=== PATIENT | male | born 1990 | race Caucasian/White ===

== ENCOUNTER → 2022-08-13 | Outpatient (CLI) | payer OTHER ==
[2022-08-13 15:10] LABS: BASO # 0.1 10*3/uL (0.0-0.1); EOS # 0.2 10*3/uL (0.0-0.4); EOS % 2.1 % (1.0-4.0); HEMATOCRIT 49.1 % (42.0-52.0); LYMPH # 2.1 10*3/uL (1.3-4.4); LYMPH % 20.6 % (27.0-41.0); MEAN CELL VOLUME 82.1 fl (80.0-94.0); MEAN CORPUSCULAR HGB 28.1 pg (27.0-31.0); MEAN CORPUSCULAR HGB CONC 34.2 g/dl (33.0-37.0); MEAN PLATELET VOLUME 11.4 fl (9.6-12.3); MONO # 0.7 10*3/uL (0.1-1.0); MONO % 7.2 % (3.0-9.0); NEUT % 68.8 % (47.0-73.0); PLATELET COUNT AUTOMATED 232 10*3/uL (130-400); RED BLOOD COUNT 5.98 10*6/uL (4.50-5.90); RED CELL DISTRI WIDTH 13.1 % (0-14.5); WHITE BLOOD COUNT 10.2 10*3/uL (4.8-10.8)
[2022-08-13 15:54] LABS: VITAMIN D, 25-HYDROXY 34.6 ng/mL (30-100)
[2022-08-13 19:05] LABS: ALKALINE PHOSPHATASE 83 U/L (46-116); BUN 15 mg/dl (9-23); CHLORIDE 108 mmol/L (98-107); CHOLESTEROL 155 mg/dL (<200); FREE T4 1.25 ng/dl (0.89-1.76); LDL CHOLESTEROL 76 mg/dL (9-159); POTASSIUM 3.9 mmol/L (3.4-5.1); SGPT/ALT 31 U/L (10-49); THYROID STIM HORMONE (HS) 1.262 uIU/ml (0.550-4.780); TRIGLYCERIDES 242 mg/dl (<150)
== END | disposition home or self-care (01) ==
LOC: LAB 14:53
PROVIDERS: ATTEND Internal Medicine
DX: Z13.0 Encounter for screening for diseases of the blood and blood-forming organs and certain disorders involving the immune mechanism (principal); Z13.1 Encounter for screening for diabetes mellitus; Z13.21 Encounter for screening for nutritional disorder; Z13.228 Encounter for screening for other metabolic disorders; Z13.220 Encounter for screening for lipoid disorders; Z13.29 Encounter for screening for other suspected endocrine disorder